=== PATIENT | female | born 1930 | race Caucasian/White ===

== ENCOUNTER 2019-03-15 08:44 | Day surgery (SDC) | payer OTHER | END 2019-03-15 14:00 | disposition home or self-care (01) | LOC: EDBD 08:44 → AMB-ENDOS 08:44 | DX: D12.3 Benign neoplasm of transverse colon (principal); D12.8 Benign neoplasm of rectum ==

== ENCOUNTER 2020-05-22 07:30 | Day surgery (SDC) | payer OTHER | END 2020-05-22 10:40 | disposition home or self-care (01) | LOC: AMB-ENDOS 07:30 | PROVIDERS: ATTEND Surgery | DX: D12.2 Benign neoplasm of ascending colon (principal); D12.3 Benign neoplasm of transverse colon; Z20.828 Contact with and (suspected) exposure to other viral communicable diseases ==